=== PATIENT | female | born 1935 | race Caucasian/White ===

== ENCOUNTER 2018-10-27 10:23 | Inpatient (IN) | payer MEDICARE ==
[~2018-10-27] VITALS: Ht 147.3 cm; Wt 55.0 kg
[2018-10-27] MEDS ORDERED: NORVASC 10MG10 MG PO (11:11)
[2018-10-27] MEDS ORDERED: CEPHALEXIN500 M1 PO (11:12)
[2018-10-27] MEDS ORDERED: CALCIUM CARBON650 M2 (11:12)
[2018-10-27] MEDS ORDERED: OMEGA-3 1000 MG1 CAP PO (11:12)
[2018-10-27] MEDS ORDERED: VITAMIN C500 MG PO (11:13)
[2018-10-27 11:32] LABS: BASO % 0.8 % (0.0-2.0); EOS # 0.1 (0.0-0.7); EOS % 1.1 % (0-4.0); GRAN # 3.5 (1.4-6.5); GRAN % 65.7 % (42.2-75.2); HEMATOCRIT 42.3 % (37.0-47.0); LYMPH # 1.3 (1.2-3.4); LYMPH % 24.6 % (20.0-51.0); MEAN CELL VOLUME 95 fl (80.0-100.0); MEAN CORPUSCULAR HEMOGLOBIN 32 pg (27.0-31.0); MEAN CORPUSCULAR HGB CONC 33 g/dl (33.0-37.0); MEAN PLATELET VOLUME 8.4 fl (7.4-10.4); MONO # 0.4 (0.1-0.6); MONO % 7.6 % (1.7-9.3); PLATELET COUNT 289 K/mm3 (130-400); RED BLOOD COUNT 4.44 M/mm3 (4.10-5.30); REDCELL DISTRIBUTION WIDTH-CV 13.3 % (11.5-14.5)
[2018-10-27 11:36] LABS: PROTHROMBIN TIME 10.9 SECONDS (9.7-12.8)
[2018-10-27 11:38] LABS: PARTIAL THROMBOPLASTIN TIME 30.5 SECONDS (26.0-37.0)
[2018-10-27 11:40] LABS: ALBUMIN 4.4 gm/dL (3.5-5.0); BILIRUBIN,TOTAL 0.6 mg/dL (0.0-1.0); CALCIUM 9.9 mg/dL (8.4-10.2); CREATININE, serum 1.19 mg/dL (0.52-1.25); POTASSIUM 4.2 mmol/L (3.4-5.0)
[2018-10-27 11:41] LABS: MAGNESIUM 2.1 mg/dL (1.6-2.3); PHOSPHOROUS 4.3 mg/dL (2.5-4.5)
[2018-10-27 11:53] LABS: TROPONIN-I 0.026 ng/mL (0.000-0.034)
[2018-10-27 12:41] LABS: COLLECTION METHOD CLEAN CATCH
[2018-10-27 12:55] LABS: MUCOUS Present /lpf; PH 5 (5-8); SQUAMOUS EPITHELIAL 0-2 /hpf; URINE APPEARANCE Clear; URINE BACTERIA Rare /hpf; URINE BILIRUBIN Negative (NEGATIVE); URINE BLOOD Negative (NEGATIVE); URINE COLOR Yellow; URINE GLUCOSE Negative (NEGATIVE); URINE KETONE Negative (NEGATIVE); URINE LEUKOCYTE ESTERASE 1+ (NEGATIVE); URINE NITRATE Negative (NEGATIVE); URINE PROTEIN(semi-quant) Negative (NEGATIVE); URINE UROBILINOGEN Negative (NEGATIVE)
[2018-10-27 16:04] VITALS: BP 120/92; PULSE 102
[2018-10-27 20:08] VITALS: BP 160/54; PULSE 116
[2018-10-27 22:28] VITALS: BP 132/55; PULSE 66; TEMP 98.1
[2018-10-28 02:51] VITALS: BP 149/79; PULSE 112; PULSE 68
[2018-10-28 06:13] LABS: BASO % 0.3 % (0.0-2.0); EOS # 0.1 (0.0-0.7); EOS % 1.3 % (0-4.0); GRAN # 3.7 (1.4-6.5); GRAN % 59.9 % (42.2-75.2); LYMPH # 1.8 (1.2-3.4); MEAN CELL VOLUME 97 fl (80.0-100.0); MEAN CORPUSCULAR HGB CONC 32 g/dl (33.0-37.0); MEAN PLATELET VOLUME 8.7 fl (7.4-10.4); MONO # 0.6 (0.1-0.6); MONO % 9.2 % (1.7-9.3); PLATELET COUNT 225 K/mm3 (130-400); RED BLOOD COUNT 3.53 M/mm3 (4.10-5.30); REDCELL DISTRIBUTION WIDTH-CV 13.6 % (11.5-14.5)
[2018-10-28 06:21] LABS: CALCIUM 8.7 mg/dL (8.4-10.2); CREATININE, serum 0.82 mg/dL (0.52-1.25); POTASSIUM 3.6 mmol/L (3.4-5.0)
[2018-10-28 06:34] LABS: HEMATOCRIT 34.3 % (37.0-47.0); HEMOGLOBIN 11.1 g/dl (12.5-16.0); MEAN CORPUSCULAR HEMOGLOBIN 31 pg (27.0-31.0)
[2018-10-28 07:37] VITALS: BP 151/59; PULSE 53; TEMP 98.3
[2018-10-28 11:41] VITALS: BP 147/51; PULSE 57; TEMP 98.3
[2018-10-28 16:16] VITALS: BP 152/59; PULSE 50; TEMP 97.7
[2018-10-28 20:48] VITALS: BP 152/81; PULSE 63; TEMP 98.1
[2018-10-29 00:23] VITALS: BP 149/60; PULSE 55; TEMP 98.2
[2018-10-29 03:31] VITALS: BP 154/67; PULSE 118; TEMP 97.9
[2018-10-29 08:07] VITALS: BP 156/86; PULSE 80; TEMP 98
[2018-10-29 10:01] LABS: BASO % 0.3 % (0.0-2.0); EOS # 0.1 (0.0-0.7); EOS % 2.1 % (0-4.0); GRAN # 4.7 (1.4-6.5); GRAN % 74.9 % (42.2-75.2); HEMOGLOBIN 11.7 g/dl (12.5-16.0); LYMPH % 15.9 % (20.0-51.0); MEAN CELL VOLUME 97 fl (80.0-100.0); MEAN CORPUSCULAR HEMOGLOBIN 32 pg (27.0-31.0); MEAN CORPUSCULAR HGB CONC 33 g/dl (33.0-37.0); MEAN PLATELET VOLUME 8.7 fl (7.4-10.4); MONO # 0.4 (0.1-0.6); MONO % 6.8 % (1.7-9.3); PLATELET COUNT 202 K/mm3 (130-400); RED BLOOD COUNT 3.67 M/mm3 (4.10-5.30); REDCELL DISTRIBUTION WIDTH-CV 13.4 % (11.5-14.5)
[2018-10-29 10:07] LABS: HEMATOCRIT 35.4 % (37.0-47.0)
[2018-10-29 10:17] LABS: CREATININE, serum 0.83 mg/dL (0.52-1.25); POTASSIUM 3.6 mmol/L (3.4-5.0)
[2018-10-29 11:10] VITALS: BP 151/52; PULSE 62; TEMP 98.1
[2018-10-29] MEDS ORDERED: TOPROL XL 50MG50 MG PO (14:44)
[2018-10-29] MEDS ORDERED: CEPHALEXIN500 M1 PO (14:45)
[2018-10-29] MEDS ORDERED: ASPIRIN E.C. 8181 MG PO (16:25)
== END 2018-10-29 15:32 | disposition home or self-care (01) | DRG 244 ==
LOC: COL.ER 10:23 → MEDICAL 12:53 → ICU 12:53 → MEDICAL 17:15
PROVIDERS: Emergency Medicine; Hospitalist; Physician Assistant
PROC: 0JH606Z Insertion of Pacemaker, Dual Chamber into Chest Subcutaneous Tissue and Fascia, Open Approach (ICD-10-PCS; principal; 2018-10-27)
PROC: 02HK3JZ Insertion of Pacemaker Lead into Right Ventricle, Percutaneous Approach (ICD-10-PCS; 2018-10-27)
PROC: 02H63JZ Insertion of Pacemaker Lead into Right Atrium, Percutaneous Approach (ICD-10-PCS; 2018-10-27)
DX: I49.5 Sick sinus syndrome (principal); Z66 Do not resuscitate; I10 Essential (primary) hypertension; E78.5 Hyperlipidemia, unspecified
CPT/HCPCS: 99222-AI; 99232-AI; 99239; C1769; C1785; C1894; C1898; J0690; J2250; J3010; J7030; Q9967

== ENCOUNTER 2022-02-16 10:11 | Emergency (ER) | payer MEDICARE ==
[~2022-02-16] VITALS: Ht 147.3 cm; Wt 52.3 kg
[~2022-02-16 10:11] MED LIST: ASPIRIN E.C. 8181 MG PO; CALCIUM CARBON650 M2; CEPHALEXIN500 M1 PO; COZAAR 50MG50 MG/TAB PO; MULTIVITAMIN SEN PO; NORVASC 10MG10 MG PO; OMEGA-3 1000 MG1 CAP PO; TIMOPTIC 0.5%-15 OU; TOPROL XL 50MG50 MG PO; VITAMINC1000TA PO
[2022-02-16 10:36] LABS: BASO % 0.7 % (0.0-2.0); EOS # 0.3 K/mm3 (0.0-0.7); EOS % 5.7 % (0.0-4.0); GRAN # 2.8 K/mm3 (1.4-6.5); GRAN % 51.6 % (42.2-75.2); HEMATOCRIT 40.2 % (37.0-47.0); LYMPH # 1.8 K/mm3 (1.2-3.4); LYMPH % 33.7 % (20.0-51.0); MEAN CELL VOLUME 94 fl (80.0-100.0); MEAN CORPUSCULAR HEMOGLOBIN 30 pg (27-31); MEAN CORPUSCULAR HGB CONC 32 g/dl (33.0-37.0); MEAN PLATELET VOLUME 8.3 fl (7.4-10.4); MONO # 0.4 K/mm3 (0.1-0.6); MONO % 8.1 % (1.7-9.3); PLATELET COUNT 312 K/mm3 (130-400); RED BLOOD COUNT 4.29 M/mm3 (4.10-5.30); REDCELL DISTRIBUTION WIDTH-CV 13.8 % (11.5-14.5)
[2022-02-16 10:38] LABS: INR 1.1 (0.8-3.0); PROTHROMBIN TIME 11.7 SECONDS (9.7-12.8)
[2022-02-16 10:45] LABS: ALBUMIN 3.6 gm/dL (3.4-4.8); BILIRUBIN,TOTAL 0.4 mg/dL (0.2-1.2); CALCIUM 9.3 mg/dL (8.4-10.2); CREATININE, serum 1.03 mg/dL (0.57-1.11); POTASSIUM 3.9 mmol/L (3.5-4.5)
[2022-02-16 10:51] LABS: TROPONIN-I 0.027 ng/mL (0.00-0.033)
[2022-02-16 11:02] LABS: COLLECTION METHOD CLEAN CATCH
[2022-02-16 13:07] LABS: URINE APPEARANCE Clear (CLEAR/HAZY); URINE COLOR Yellow (YELLOW)
[2022-02-16 13:08] LABS: PH 6 (5-8); URINE BILIRUBIN Negative (NEGATIVE); URINE GLUCOSE Negative (NEGATIVE); URINE KETONE Negative (NEGATIVE); URINE PROTEIN(semi-quant) 1+ (NEGATIVE)
[2022-02-16 13:09] LABS: SQUAMOUS EPITHELIAL 0-2 /hpf (0-10); URINE BLOOD Negative (NEGATIVE); URINE LEUKOCYTE ESTERASE Trace (NEGATIVE); URINE NITRATE Negative (NEGATIVE); URINE UROBILINOGEN Negative (NEGATIVE)
[2022-02-16 13:10] LABS: URINE BACTERIA None Seen /hpf (NONE SEEN)
[2022-02-16 16:20] VITALS: BP 159/72; PULSE 68; TEMP 98.1
== END 2022-02-16 17:50 | disposition home or self-care (01) ==
LOC: COL.ER 10:11
PROVIDERS: Nurse Practitioner Primary Care
DX: R42 Dizziness and giddiness (principal); Z87.891 Personal history of nicotine dependence
CPT/HCPCS: J7030; Q9967

== ENCOUNTER 2022-03-09 15:55 | Emergency (ER) | payer MEDICARE ==
[~2022-03-09] VITALS: Ht 147.3 cm; Wt 52.3 kg
[2022-03-09 17:25] LABS: BASO % 0.8 % (0.0-2.0); EOS # 0.1 K/mm3 (0.0-0.7); EOS % 2.9 % (0.0-4.0); GRAN # 2.9 K/mm3 (1.4-6.5); GRAN % 61.2 % (42.2-75.2); HEMATOCRIT 39.9 % (37.0-47.0); HEMOGLOBIN 13.1 g/dl (12.5-16.0); LYMPH # 1.3 K/mm3 (1.2-3.4); LYMPH % 27.6 % (20.0-51.0); MEAN CELL VOLUME 93 fl (80.0-100.0); MEAN CORPUSCULAR HEMOGLOBIN 30 pg (27-31); MEAN CORPUSCULAR HGB CONC 33 g/dl (33.0-37.0); MEAN PLATELET VOLUME 8.2 fl (7.4-10.4); MONO # 0.4 K/mm3 (0.1-0.6); MONO % 7.3 % (1.7-9.3); PLATELET COUNT 296 K/mm3 (130-400); RED BLOOD COUNT 4.31 M/mm3 (4.10-5.30); REDCELL DISTRIBUTION WIDTH-CV 13.8 % (11.5-14.5)
[2022-03-09 17:44] LABS: COLLECTION METHOD CLEAN CATCH
[2022-03-09 17:45] LABS: ALBUMIN 3.7 gm/dL (3.4-4.8); BILIRUBIN,TOTAL 0.2 mg/dL (0.2-1.2); CALCIUM 9.3 mg/dL (8.4-10.2); CREATININE, serum 1.04 mg/dL (0.57-1.11); POTASSIUM 4.2 mmol/L (3.5-4.5); TOTAL PROTEIN 8.5 gm/dL (6.2-8.1)
[2022-03-09 17:50] LABS: MUCOUS Present (NOT PRESENT); PH 7 (5-8); SQUAMOUS EPITHELIAL 0-2 /hpf (0-10); URINE APPEARANCE Clear (CLEAR/HAZY); URINE BACTERIA Rare /hpf (NONE SEEN); URINE BILIRUBIN Negative (NEGATIVE); URINE BLOOD Negative (NEGATIVE); URINE COLOR Straw (YELLOW); URINE GLUCOSE Negative (NEGATIVE); URINE KETONE Negative (NEGATIVE); URINE LEUKOCYTE ESTERASE Trace (NEGATIVE); URINE NITRATE Negative (NEGATIVE); URINE PROTEIN(semi-quant) Negative (NEGATIVE); URINE RBC 0-2 /hpf (0-2); URINE UROBILINOGEN Negative (NEGATIVE)
[2022-03-09 17:53] LABS: TROPONIN-I 0.034 ng/mL (0.00-0.033)
[2022-03-09 20:47] VITALS: BP 126/70; PULSE 62; TEMP 98.2
--- NOTE | 2022-03-12 13:28 | NUR ---
On 03/11/22, social work instructor contacted patient's son, Brian Kelly and confirmed that patient is open to home health for vertigo support and assistance with exercises. Worker contacted Dr Wood's nurse and advised of the above information and discussed the recent emergency room visit. Patient was actually seen in Dr Wood's office on 03/11/22 for a wellness check only. Worker will await Dr Wood's social work instructor (Wei)to call on 03/12/22. On this date, social work instructor spoke with Wei and discussed the above information. Wei confirmed that she will contact patient and arrange evaluation and set up of home health.
== END 2022-03-09 21:02 | disposition home or self-care (01) ==
LOC: COL.ER 15:55
PROVIDERS: Physician Assistant
DX: R42 Dizziness and giddiness (principal)
CPT/HCPCS: J7030

== ENCOUNTER 2023-12-03 13:14 | Emergency (ER) | payer MEDICARE ==
[~2023-12-03] VITALS: Ht 142.2 cm; Wt 52.3 kg
[2023-12-03 13:22] VITALS: TEMP 97.5
[2023-12-03 15:04] LABS: COLLECTION METHOD CLEAN CATCH
[2023-12-03 15:20] LABS: PH 5.5 (5.0-8.5); URINE APPEARANCE Clear (CLEAR/HAZY); URINE BACTERIA Moderate /hpf (NONE SEEN); URINE BLOOD Negative (NEGATIVE); URINE COLOR Yellow (YELLOW); URINE GLUCOSE Negative (NEGATIVE); URINE KETONE Negative (NEGATIVE); URINE NITRATE Negative (NEGATIVE); URINE PROTEIN(semi-quant) Negative (NEGATIVE); URINE RBC 0-2 /hpf (0-2); URINE UROBILINOGEN 0.2 E.U/dL (0.2-1.0)
[2023-12-03 15:23] LABS: BASO # 0.1 K/mm3 (0.0-0.2); BASO % 1.2 % (0.0-2.0); EOS # 0.1 K/mm3 (0.0-0.7); EOS % 2.1 % (0.0-4.0); GRAN # 3.3 K/mm3 (1.4-6.5); GRAN % 67.7 % (42.2-75.2); HEMATOCRIT 37.5 % (37.0-47.0); HEMOGLOBIN 12.2 g/dl (12.5-16.0); LYMPH % 21.2 % (20.0-51.0); MEAN CELL VOLUME 94 fl (80.0-100.0); MEAN CORPUSCULAR HEMOGLOBIN 31 pg (27-31); MEAN CORPUSCULAR HGB CONC 33 g/dl (33.0-37.0); MONO # 0.4 K/mm3 (0.1-0.6); MONO % 7.4 % (1.7-9.3); PLATELET COUNT 316 K/mm3 (130-400); RED BLOOD COUNT 3.99 M/mm3 (4.10-5.30); REDCELL DISTRIBUTION WIDTH-CV 13.8 % (11.5-14.5)
[2023-12-03 15:39] LABS: ALBUMIN 3.3 gm/dL (3.4-4.8); BILIRUBIN,TOTAL 0.2 mg/dL (0.2-1.2); CALCIUM 9.2 mg/dL (8.4-10.2); CREATININE, serum 1.44 mg/dL (0.57-1.11); POTASSIUM 4.3 mmol/L (3.5-4.5); TOTAL PROTEIN 8.6 gm/dL (6.2-8.1)
[2023-12-03] MEDS ORDERED: STOOL SOFTENER240 M1 PO (16:45)
[2023-12-03] MEDS ORDERED: CEPHALEXIN250 M1 PO (16:45)
[2023-12-03 17:40] VITALS: BP 125/54; PULSE 60
== END 2023-12-03 17:40 | disposition home or self-care (01) ==
LOC: COL.ER 13:14
PROVIDERS: Emergency Medicine
DX: S32.008A Other fracture of unspecified lumbar vertebra, initial encounter for closed fracture (principal); S22.9XXA Fracture of bony thorax, part unspecified, initial encounter for closed fracture; K59.00 Constipation, unspecified; K76.89 Other specified diseases of liver; N28.1 Cyst of kidney, acquired; D64.9 Anemia, unspecified; Z87.891 Personal history of nicotine dependence; W18.31XA Fall on same level due to stepping on an object, initial encounter; Y92.009 Unspecified place in unspecified non-institutional (private) residence as the place of occurrence of the external cause

== ENCOUNTER 2024-06-23 12:10 | Emergency (ER) | payer MEDICARE ==
[~2024-06-23] VITALS: Ht 142.2 cm; Wt 48.2 kg
[~2024-06-23 12:10] MED LIST changes: +CEPHALEXIN250 M1 PO; +STOOL SOFTENER240 M1 PO
[2024-06-23 12:24] VITALS: BP 132/76; TEMP 97.1
[2024-06-23] MEDS ORDERED: Acetaminophen 325 MG TAB PO ONE (13:00)
[2024-06-23] MEDS ORDERED: NORCO 325 MG-51 TAB PO (14:32)
[2024-06-23] MEDS ORDERED: fentaNYL 50 MCG/ML 2 ML VIAL IM ONE (14:45)
[2024-06-23] MEDS ORDERED: Home HYDROcodone/Acetaminophen 5/325 MG #4 TABS/PACK PO ONE (15:00)
[2024-06-23 15:05] VITALS: PULSE 61
== END 2024-06-23 15:05 | disposition home or self-care (01) ==
LOC: COL.ER 12:10
DX: S09.90XA Unspecified injury of head, initial encounter (principal); S52.501A Unspecified fracture of the lower end of right radius, initial encounter for closed fracture; W19.XXXA Unspecified fall, initial encounter